=== PATIENT | male | born 1945 | race Caucasian/White ===

== ENCOUNTER 2016-06-30 17:32 | Emergency (ER) | payer OTHER ==
[2016-06-30 17:49] VITALS: BP 153/95; PULSE 75; RESP 18; TEMP 98.2; O2SAT 95
[2016-06-30] MEDS ORDERED: CEPHALEXIN 500 MG CAP PO ONE (18:35)
[2016-06-30] MEDS ORDERED: TDAP ADULT 0.5 ML INJ (BOOSTRIX) IM ONE (18:59)
--- NOTE | 2016-06-30 19:03 | UCPHY ---
H & P Time Seen by Provider: 06/30/16 18:24 Patient Type: Established HPI/ROS: This patient fell on gravel 2 days ago when the dog was walking got tangled up with another dog bumping his leg causing him to fall to his left arm abrasions to the dorsum of the left hand and forearm. He presents due to concern of infection of the area with erythema and mild discomfort over the past 24 hours. He notes some warmth to touch to the same area. He also reports some pain to his back points to the lower thoracic and back area as the site of the pain states the also injured the area for fall. He points to the paraspinous region immediately adjacent to the spine on the right side. ROS: Constitutional: No fevers or chills. He did not strike his head. He reports no midline neck or back pain. Neuro: No headache no numbness tingling or focal weakness. 7 point ROS is otherwise negative. Past Medical/Surgical History: Otherwise healthy Smoking Status: Former smoker Physical Exam: Physical Exam Vital signs are normal. General: No acute distress HEENT: Atraumatic. Eyes: Pupils equal and react to light. Extraocular motions are intact. Neck: No midline tenderness Back: No midline tenderness though does have paraspinous tenderness immediately adjacent to the right lower thoracic region. Despite this he retains full range of motion. Has mild increased pain with flexion. He has is able to sit up from a lying position but this causes moderate pain to the right paraspinous upper lumbar or lower thoracic region. Seems to be between the T 10 and L1 region. Abdomen: Soft nontender Lungs: Clear to auscultation bilaterally. No respiratory distress. Cardiac: Brisk capillary refill is intact throughout. Pulses are 2+ and symmetric in the affected extremity. Skin: The patient has superficial abrasions to the dorsum of left hand and distal forearm with surrounding erythema warmth to touch. No fluctuant lesions. No significant contamination of the superficial abrasions as noted. Neuro: Alert and oriented x3 with no sensorimotor deficits. Initial differential diagnosis: Upper lumbar lower thoracic compression fracture, back strain, back contusion. wound infection-localized from abrasions , Constitutional: Initial Vital Signs Temperature (C) 36.8 C 06/30/16 17:45 Heart Rate 75 06/30/16 17:45 Respiratory Rate 18 06/30/16 17:45 Blood Pressure 153/95 H 06/30/16 17:45 O2 Sat (%) 95 06/30/16 17:45 O2 Delivery Mode Room Air Allergies/Adverse Reactions: No Known Allergies Allergy (Verified 07/10/13 16:10) Home Medications: Medication Instructions Recorded Ibuprofen [Motrin 200 mg (OTC)] 1,000 mg PO DAILY 08/13/12 Hydrocodone/APAP 5/325 [Zephyr 1 each PO Q4 PRN #15 tab 07/10/13 5/325 (*)] Cephalexin [Keflex (*)] 500 mg PO TID #21 cap 06/30/16 Hydrocortisone 0.2% Valerate 1 lisette TP BID #5 gm 06/30/16 [Westcort 0.2% Cream (*)] Methocarbamol [Robaxin 750 mg (*)] 750 - 1,500 mg PO QID PRN #30 tab 06/30/16 MDM/Departure - MDM Diagnostics: Lumbar spine x-ray: Negative for acute fracture by my interpretation However, radiologist tj Crespo notes a nondisplaced right side 11th rib fracture the adjacent to the spine Imaging: Discussed imaging studies w/ turbine mechanic Radiologist Medications Given: Discontinued Medications Cephalexin HCl (Keflex) 500 mg PO EDNOW ONE PRN Reason: Protocol Stop: 06/30/16 18:36 Last Admin: 06/30/16 19:14 Dose: 500 mg Diphtheria/Tetanus/Acell Pertussis (Boostrix) 0.5 ml IM .ONCE ONE Stop: 06/30/16 19:00 Last Admin: 06/30/16 19:14 Dose: 0.5 ml Keflex p.o. ED Course/Re-evaluation: Wound care to abrasions, bandages applied. Counseled patient regarding wound infection/cellulitis and I also discussed his nondisplaced 11th rib fractures I spoke with Cherie prior to the patient's discharge. The patient declines analgesics other than [id number] for for his rib fracture. We will treat him with Keflex for his superficial wound infection. No other concerning findings on his exam. - Depart Disposition: Home, Routine, Self-Care Clinical Impression: Wound infection, Dermatitis Low back strain Qualifiers: Encounter type: initial encounter Qualified Code(s): S39.012A - Strain of muscle, fascia and tendon of lower back, initial encounter Hand abrasion Qualifiers: Encounter type: initial encounter Laterality: left Qualified Code(s): S60.512A - Abrasion of left hand, initial encounter Rib fracture Qualifiers: Encounter type: initial encounter Rib fracture type: single rib Fracture type: closed Laterality: right Qualified Code(s): S22.31XA - Fracture of one rib, right side, initial encounter for closed fracture Condition: Good Instructions: Cellulitis (ED), Rib Fracture (ED), Low Back Strain (ED), Abrasion (ED) Additional Instructions: Diagnoses: 1. Left hand abrasion with wound infection 2. Back strain 3. Dermatitis-chest wall 4. 11th rib fracture I appreciate no fractures on your back x-ray. Plan: Continue ibuprofen but he should not exceed 800 mg per 8 hours or 600 mg for 6 hours Add methocarbamol muscle relaxant and Tylenol as needed for pain control Keflex antibiotic for the hand infection Take a deep breath every 10-15 minutes despite the pain to be sure you do not get a secondary complication of pneumonia. Westcort steroid cream Call Dr. Carreon-replanting machine operator this below 20 follow-up appointment if her rash does not resolve with treatment plan Call Dr. Talley to establish primary care physician Clean your abrasions daily and reapplied bandages as needed. Return for any significant worsening despite treatment plan. Prescriptions: Cephalexin [Keflex (*)] 500 mg PO TID #21 cap Hydrocortisone 0.2% Valerate [Westcort 0.2% Cream (*)] 1 lisette TP BID #5 gm Methocarbamol [Robaxin 750 mg (*)] 750 - 1,500 mg PO QID PRN #30 tab PRN Reason: Muscle Spasms Referrals: NONE *PRIMARY CARE P,. [Primary Care Provider] - As per Instructions BERNY GARCIA [Medical Doctor] - As per Instructions JULES CARREON [Medical Doctor] - As per Instructions - PQRS PQRS Measurement: 134: Depression screening and followup, PRIME MD-PHQ2 (12 years and older) Over the last 2 weeks, how often have you been bothered by any of the following problems? 1. Feeling down, depressed, or hopeless? 2. Little interest or pleasure in doing things? Patient answered no to both 1 and 2 130: Documentation of medications. Reviewed all patient medications, doses, route and frequency. 226: Do you smoke? [No.] 47: 65 and older: Advanced care planning. Patient designates surrogate decision maker as spouse 51: 18 years old and older with diagnosis of COPD, spirometry performance. NA 52: 18 years old and older with COPD and symptoms of COPD or FEV1<60% predicted prescribed a B Agonist. NA
== END 2016-06-30 19:20 | disposition home or self-care (01) ==
LOC: CED 17:32
DX: S22.31XA Fracture of one rib, right side, initial encounter for closed fracture (principal); Z23 Encounter for immunization; W01.0XXA Fall on same level from slipping, tripping and stumbling without subsequent striking against object, initial encounter; Y93.K1 Activity, walking an animal
CPT/HCPCS: 72100-PO; 99214-PO; G0463-PO